=== PATIENT | female | born 1990 ===

== ENCOUNTER 2019-01-10 20:10 | Emergency (ER) | payer OTHER ==
[2019-01-10 20:26] VITALS: BP 177/86
[2019-01-10] MEDS ORDERED: DELTASONE PO ONE (20:40)
[2019-01-10] MEDS ORDERED: FLEXERIL PO ONE (20:40)
[2019-01-10] MEDS ORDERED: NORCO 5/325 PO ONE (20:40)
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
== END 2019-01-10 22:02 | disposition home or self-care (01) ==
LOC: ED 20:10
DX: M54.5 Low back pain (principal); M79.10 Myalgia, unspecified site; V89.2XXA Person injured in unspecified motor-vehicle accident, traffic, initial encounter; Y93.89 Activity, other specified; Y92.488 Other paved roadways as the place of occurrence of the external cause; Y99.8 Other external cause status
CPT/HCPCS: 72100; 99283; J7512